=== PATIENT | male | born 1950 | race African-American/Black ===

== ENCOUNTER 2019-10-15 23:21 | Emergency (ER) | payer MEDICARE ==
[~2019-10-15] VITALS: Ht 177.8 cm; Wt 84.1 kg
[~2019-10-15 23:21] MED LIST: ACET500T15 PO; AMLO5TAB6 PO; DOXY-350 PO; METF500T13 PO; MIRA3350 PO; ONDA4TAB6 PO
[2019-10-15 23:22] VITALS: BP 178/97
== END 2019-10-16 02:32 | disposition left against medical advice (07) ==
LOC: M ED 23:21
DX: Z53.21 Procedure and treatment not carried out due to patient leaving prior to being seen by health care provider (principal)

== ENCOUNTER 2021-06-21 16:43 | Emergency (ER) | payer MEDICARE ==
[~2021-06-21] VITALS: Ht 177.8 cm; Wt 80.8 kg
[~2021-06-21 16:43] MED LIST changes: +AMLO1TAB24 PO; -AMLO5TAB6 PO
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
[2021-06-21 20:21] VITALS: BP 188/98
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
== END 2021-06-21 20:24 | disposition left against medical advice (07) ==
LOC: M ED 16:43
DX: Z53.29 Procedure and treatment not carried out because of patient's decision for other reasons (principal)

== ENCOUNTER 2021-08-25 13:08 | Emergency (ER) | payer MEDICARE, OTHER ==
[~2021-08-25] VITALS: Ht 177.8 cm; Wt 80.6 kg
--- NOTE | 2021-08-25 13:52 | REP ---
INDICATION: NEURO SYMPTOMS COMPARISON: None. TECHNIQUE: Axial noncontrast images from the skull base to the thoracic inlet with coronal reformations. This CT examination was performed using the following dose reduction techniques: Automated exposure control, adjustment of mA and/or kv according to the patient's size, and use of iterative reconstruction technique. FINDINGS: Atrophy with periventricular leukomalacia and microvascular ischemic changes are appreciated. The ventricles and sulci are symmetric. Yeager-white differentiation is maintained. There is no evidence for acute intracranial hemorrhage, mass/mass effect, pathology or infarction. No extra-axial fluid collection. Calvarium is intact. Paranasal sinuses and mastoid air cells are clear. IMPRESSION: Atrophy and microvascular ischemic changes. No acute intracranial hemorrhage, or mass/mass effect. <Electronically signed by Rajesh Howard > 08/25/21 [id number]
[2021-08-25] MEDS ORDERED: TETRACAINE 0.5% OPHTH SOLN 4ML OU ONE (14:15)
[2021-08-25 14:45] VITALS: BP 153/84
== END 2021-08-25 14:51 | disposition home or self-care (01) ==
LOC: M ED 13:08
DX: H40.9 Unspecified glaucoma (principal)

== ENCOUNTER 2022-04-18 17:40 | Emergency (ER) | payer MEDICARE ==
[~2022-04-18] VITALS: Ht 177.8 cm; Wt 71.9 kg
[2022-04-18] MEDS ORDERED: DORZ2SOL5 (17:55)
[2022-04-18] MEDS ORDERED: PILO1OPD (17:55)
[2022-04-18] MEDS ORDERED: BRIM0.2S13 (17:55)
[2022-04-18 19:45] LABS: BASO # 0.1 10^3/uL (0.0-0.2); BASO % 1.1 % (0.0-1.0); EOS # 0.1 10^3/uL (0.0-0.5); HEMATOCRIT 45.4 % (42.0-52.0); HEMOGLOBIN 15.6 g/dl (13.5-17.5); LYMPH # 1.1 10^3/uL (1.5-5.0); MEAN CORPUSCULAR HEMOGLOBIN 27.6 pg (27.0-33.0); MEAN CORPUSCULAR HGB CONC 34.4 g/dl (32.0-36.5); MEAN CORPUSCULAR VOLUME 80.4 fl (80.0-96.0); MONO # 0.4 10^3/uL (0.0-0.8); MONO % 6.2 % (2.0-8.0); NEUTROPHILS % 70.5 % (36.0-66.0); PLATELET COUNT, AUTOMATED 218 10^3/uL (150-450); RED BLOOD COUNT 5.65 10^6/uL (4.30-6.10); WHITE BLOOD COUNT 5.6 10^3/uL (4.0-10.0)
[2022-04-18 20:42] LABS: ALT/SGPT 21 U/L (12-78); BLOOD UREA NITROGEN 15 MG/DL (7-18); CALCIUM LEVEL 9.9 MG/DL (8.8-10.2); CARBON DIOXIDE LEVEL 26 MEQ/L (21-32); CHLORIDE LEVEL 104 MEQ/L (98-107); CREATININE FOR GFR 0.99 MG/DL (0.70-1.30); GLOMERULAR FILTRATION RATE > 60.0 (>49); GLUCOSE, FASTING 177 MG/DL (70-100); SODIUM LEVEL 135 MEQ/L (136-145)
[2022-04-18 20:43] LABS: ALBUMIN 4.3 GM/DL (3.2-5.2); BILIRUBIN,DIRECT 0.2 MG/DL (0.0-0.2); BILIRUBIN,TOTAL 0.7 MG/DL (0.2-1.0); LIPASE 116 U/L (73-393); TOTAL PROTEIN 8.2 GM/DL (6.4-8.2)
[2022-04-18] MEDS ORDERED: PERCOCET 5MG/325MG TAB PO ONE (22:40)
[2022-04-18 22:58] VITALS: BP 172/92
== END 2022-04-18 23:00 | disposition home or self-care (01) ==
LOC: M ED 17:40
DX: K40.20 Bilateral inguinal hernia, without obstruction or gangrene, not specified as recurrent (principal); I10 Essential (primary) hypertension; R73.9 Hyperglycemia, unspecified; H40.9 Unspecified glaucoma; Z79.899 Other long term (current) drug therapy

== ENCOUNTER 2024-04-13 16:31 | Inpatient (IN) | payer MEDICARE, MEDICAID ==
[~2024-04-13] VITALS: Ht 177.8 cm; Wt 76.9 kg
[~2024-04-13 16:31] MED LIST changes: +BRIM0.2S13 OU; +DORZ2SOL5 OU; -DOXY-350 PO; +DOXY-440 PO; +ONDA-282 PO; -ONDA4TAB6 PO; +PILO1OPD
[2024-04-13] MEDS ORDERED: LATANOPROST (16:44)
[2024-04-13 17:31] LABS: BASO # 0.1 10^3/uL (0.0-0.2); BASO % 0.4 % (0.0-1.0); EOS # 0.1 10^3/uL (0.0-0.5); HEMATOCRIT 39.7 % (42.0-52.0); HEMOGLOBIN 14.1 g/dl (13.5-17.5); LYMPH # 1.3 10^3/uL (1.5-5.0); LYMPH % 11.1 % (24.0-44.0); MEAN CORPUSCULAR HEMOGLOBIN 28.4 pg (27.0-33.0); MEAN CORPUSCULAR HGB CONC 35.5 g/dl (32.0-36.5); MEAN CORPUSCULAR VOLUME 79.9 fl (80.0-96.0); MONO # 1.1 10^3/uL (0.0-0.8); MONO % 9.4 % (2.0-8.0); NEUTROPHILS % 77.7 % (36.0-66.0); PLATELET COUNT, AUTOMATED 193 10^3/uL (150-450); RED BLOOD COUNT 4.97 10^6/uL (4.30-6.10); WHITE BLOOD COUNT 11.5 10^3/uL (4.0-10.0)
[2024-04-13 17:39] LABS: ERYTHROCYTE SEDIMENTATION RATE 55 mm/hr (0-20)
[2024-04-13 17:59] LABS: INR 1.17; PARTIAL THROMBOPLASTIN TIME 26.8 SECONDS (24.8-34.2); PROTHROMBIN TIME 14.5 SECONDS (12.5-14.5)
[2024-04-13 17:59] LABS: ALBUMIN 3.5 G/DL (3.2-5.2); ALKALINE PHOSPHATASE 102 U/L (46-116); ALT/SGPT 19 U/L (7.0-40); AST/SGOT 29 U/L (<34); BILIRUBIN,DIRECT 0.4 MG/DL (<0.4); BILIRUBIN,TOTAL 1.1 MG/DL (0.3-1.2); BLOOD UREA NITROGEN 21 MG/DL (9-23); CALCIUM LEVEL 9.3 MG/DL (8.3-10.6); CARBON DIOXIDE LEVEL 24 MMOL/L (20-31); CHLORIDE LEVEL 104 MMOL/L (98-107); GLOMERULAR FILTRATION RATE > 60.0 (>42); GLUCOSE, FASTING 299 MG/DL (74-106); POTASSIUM SERUM 4.1 MMOL/L (3.5-5.1); SODIUM LEVEL 135 MMOL/L (136-145); TOTAL PROTEIN 7.3 G/DL (5.7-8.2)
[2024-04-13] MEDS ORDERED: VANCOMYCIN HCL 1,500 MG in NS 250 ML IV ONE (18:05)
[2024-04-13] MEDS: ACETAMINOPHEN 500 MG TAB PO ONE (18:18)
[2024-04-13 18:21] LABS: PROCALCITONIN 1.38 ng/ml
[2024-04-13] MEDS: BOOSTRIX VACCINE (TETANUS/DIPHTH/ACEL. PERTUSSIS) 0.5ML SYR IM ONE (18:21)
[2024-04-13 18:23] LABS: HEMOGLOBIN A1c 9.7 % (4.0-6.0)
[2024-04-13] MEDS: VANCOMYCIN HCL 750 MG, VIAL MATE ADAPTER 1 EACH in D5W 250 ML IV ONE ×2 (18:54→20:47)
[2024-04-13] MEDS: NS 2,220 ML in IV 1 EA IV ONE (18:54)
[2024-04-13] MEDS ORDERED: DEXTROSE 50% 50ML SYRINGE IV PRN (21:35)
[2024-04-13] MEDS ORDERED: GLUCAGON INJ 1MG VIAL SC PRN (21:35)
[2024-04-13] MEDS ORDERED: GLUCOSE 4 GM CHEW PO PRN (21:35)
[2024-04-13] MEDS ORDERED: PROHANCE 279.3MG/ML 15ML VIAL As Ordered ONE (21:54)
[2024-04-14] MEDS ORDERED: XALA0.007 OU (00:16)
[2024-04-14] MEDS ORDERED: PILO1OPD OU (00:16)
[2024-04-14] MEDS ORDERED: HOME MED LIST COMPLETE! XX SCH (00:20)
[2024-04-14 00:27] LABS: CHOLESTEROL RISK RATIO 3.87 (<5); HDL CHOLESTEROL 48.3 MG/DL (>40); LDL CHOLESTEROL 117.1 MG/DL (<100); NON-HDL-C 138.7 MG/DL
[2024-04-14 00:30] LABS: THYROID STIMULATING HORMONE 1.711 uIU/ML (0.55-4.78)
[2024-04-14] MEDS: PIPERACILLIN/TAZOBACTAM SOD 4.5 GM in D5W MINI-BAG PLUS 50 ML IV ONE (00:35)
[2024-04-14] MEDS: NS 1,000 ML IV SCH (00:36)
[2024-04-14] MEDS: INSULIN LISPRO (NovoLOG) PER UNIT SC SCH (00:36)
[2024-04-14] MEDS: KETOROLAC 30 MG/ML 1ML VIAL IV ONE ×2 (00:37→23:36)
[2024-04-14 06:13] LABS: BASO # 0.1 10^3/uL (0.0-0.2); BASO % 0.7 % (0.0-1.0); EOS # 0.2 10^3/uL (0.0-0.5); EOS % 2.2 % (0.0-3.0); HEMATOCRIT 34.5 % (42.0-52.0); HEMOGLOBIN 12.5 g/dl (13.5-17.5); LYMPH # 1.9 10^3/uL (1.5-5.0); LYMPH % 17.7 % (24.0-44.0); MEAN CORPUSCULAR HEMOGLOBIN 28.6 pg (27.0-33.0); MEAN CORPUSCULAR HGB CONC 36.2 g/dl (32.0-36.5); MEAN CORPUSCULAR VOLUME 78.9 fl (80.0-96.0); MONO # 1.2 10^3/uL (0.0-0.8); MONO % 11.3 % (2.0-8.0); NEUTROPHILS # 7.2 10^3/uL (1.5-8.5); NEUTROPHILS % 67.6 % (36.0-66.0); PLATELET COUNT, AUTOMATED 186 10^3/uL (150-450); RED BLOOD COUNT 4.37 10^6/uL (4.30-6.10); WHITE BLOOD COUNT 10.7 10^3/uL (4.0-10.0)
[2024-04-14] MEDS: VANCOMYCIN HCL 1,000 MG, VIAL MATE ADAPTER 1 EACH in D5W 250 ML IV SCH (06:20)
[2024-04-14 06:41] LABS: BLOOD UREA NITROGEN 17 MG/DL (9-23); CALCIUM LEVEL 8.3 MG/DL (8.3-10.6); CARBON DIOXIDE LEVEL 24 MMOL/L (20-31); CHLORIDE LEVEL 111 MMOL/L (98-107); CREATININE FOR GFR 0.76 MG/DL (0.70-1.30); GLOMERULAR FILTRATION RATE > 60.0 (>42); GLUCOSE, FASTING 96 MG/DL (74-106); MAGNESIUM LEVEL 1.8 MG/DL (1.8-2.4); POTASSIUM SERUM 3.5 MMOL/L (3.5-5.1); SODIUM LEVEL 142 MMOL/L (136-145)
[2024-04-14] MEDS: PIPERACILLIN/TAZOBACTAM SOD 4.5 GM in D5W MINI-BAG PLUS 50 ML IV SCH (08:19)
[2024-04-14] MEDS: COSOPT OCUMETER PLUS 10ML (DORZOLAMIDE/TIMOLOL) OU SCH (09:00)
[2024-04-14] MEDS: PILOCARPINE 1% OU SCH (09:00)
[2024-04-14] MEDS: ACETAMINOPHEN TAB 650MG DOSE (2X325MG) PO PRN (09:18)
[2024-04-14 14:49] VITALS: BP 151/67; TEMP 96.9; O2SAT 99
[2024-04-14 16:08] VITALS: BP 147/88; TEMP 97.9; O2SAT 93
[2024-04-14] MEDS: PREVNAR-20 VACCINE 0.5ML SYRINGE IM.IMMUN ONE (16:30)
[2024-04-14] MEDS: MORPHINE 4 MG/ML 1ML VIAL IV ONE (17:11)
[2024-04-14] MEDS: LIDOCAINE 1% MDV 20ML VIAL SC ONE (17:14)
[2024-04-14 20:00] VITALS: BP 149/86; TEMP 97.2; O2SAT 96
[2024-04-14] MEDS: LATANOPROST 0.005% OPHTH SOLN 2.5 ML OU SCH (21:35)
[2024-04-15 04:00] VITALS: BP 147/83; TEMP 97.3; O2SAT 95
[2024-04-15] MEDS ORDERED: PROBCAP14 PO (07:14)
[2024-04-15] MEDS ORDERED: AUGM12TA11 PO (07:14)
[2024-04-15] MEDS ORDERED: DOXY100C3 PO (07:14)
[2024-04-15] MEDS: INSULIN LISPRO (NovoLOG) PER UNIT SC SCH (07:30)
[2024-04-15 07:37] LABS: HEMATOCRIT 34.3 % (42.0-52.0); HEMOGLOBIN 12.3 g/dl (13.5-17.5); MEAN CORPUSCULAR HEMOGLOBIN 28.1 pg (27.0-33.0); MEAN CORPUSCULAR HGB CONC 35.9 g/dl (32.0-36.5); MEAN CORPUSCULAR VOLUME 78.5 fl (80.0-96.0); PLATELET COUNT, AUTOMATED 180 10^3/uL (150-450); RED BLOOD COUNT 4.37 10^6/uL (4.30-6.10); WHITE BLOOD COUNT 8.3 10^3/uL (4.0-10.0)
[2024-04-15 07:44] LABS: BLOOD UREA NITROGEN 15 MG/DL (9-23); CALCIUM LEVEL 7.7 MG/DL (8.3-10.6); CARBON DIOXIDE LEVEL 23 MMOL/L (20-31); CHLORIDE LEVEL 110 MMOL/L (98-107); CREATININE FOR GFR 0.72 MG/DL (0.70-1.30); GLOMERULAR FILTRATION RATE > 60.0 (>42); GLUCOSE, FASTING 229 MG/DL (74-106); MAGNESIUM LEVEL 1.7 MG/DL (1.8-2.4); POTASSIUM SERUM 3.6 MMOL/L (3.5-5.1); SODIUM LEVEL 138 MMOL/L (136-145)
[2024-04-15 08:37] LABS: ATYPICAL LYMPH 5 % (0-5); EOSINOPHILS 6 % (0-3); LYMPHOCYTES 22 % (16-44); MICROCYTOSIS 1+; MONOCYTES 11 % (0-5); NEUTROPHILS 56 % (28-66); PLATELET ESTIMATE NORMAL (NORMAL)
[2024-04-15 08:38] LABS: ANISOCYTOSIS 1+; TOXIC VACUOLATION 1+
[2024-04-15] MEDS ORDERED: INSULIN LISPRO (NovoLOG) PER UNIT SC SCH (21:00)
== END 2024-04-15 08:00 | disposition left against medical advice (07) | DRG 638 ==
LOC: M ED 16:31 → M ED INP 21:34 → M MS5PR 04-14 16:00
PROVIDERS: ADMIT Internal Medicine; ATTEND Student in an Organized Health Care Education/Training Program
PROC: 0Y9N0ZZ Drainage of Left Foot, Open Approach (ICD-10-PCS; principal; 2024-04-14)
DX: E11.628 Type 2 diabetes mellitus with other skin complications (principal); M86.8X7 Other osteomyelitis, ankle and foot; L02.612 Cutaneous abscess of left foot; E11.69 Type 2 diabetes mellitus with other specified complication; I10 Essential (primary) hypertension; H40.9 Unspecified glaucoma; H26.9 Unspecified cataract; G31.84 Mild cognitive impairment of uncertain or unknown etiology; M60.872 Other myositis, left ankle and foot; E11.65 Type 2 diabetes mellitus with hyperglycemia; Z87.891 Personal history of nicotine dependence; Z79.899 Other long term (current) drug therapy

== ENCOUNTER 2024-09-20 12:09 | Emergency (ER) | payer MEDICARE, MEDICAID ==
[~2024-09-20] VITALS: Ht 172.7 cm; Wt 79.9 kg
[~2024-09-20 12:09] MED LIST changes: +AUGM12TA11 PO; +DOXY100C3 PO; +LATANOPROST; +PILO1OPD OU; +PROBCAP14 PO; +XALA0.007 OU
[2024-09-20 13:57] LABS: VENOUS BASE EXCESS 0.7 (-2.0-2.0); VENOUS HCO3 25.3 MMOL/L (23.0-27.0); VENOUS PARTIAL PRESSURE CO2 40.7 mmHg (38.0-50.0); VENOUS PH 7.412 UNITS (7.330-7.430); VENOUS STANDARD HCO3 24.6 MMOL/L; VENOUS TOTAL CO2 26.6 MMOL/L (24.0-28.0)
[2024-09-20 14:06] LABS: BASO % 0.5 % (0.0-1.0); EOS # 0.1 10^3/uL (0.0-0.5); EOS % 1.1 % (0.0-3.0); HEMATOCRIT 44.1 % (42.0-52.0); HEMOGLOBIN 15.9 g/dl (13.5-17.5); LYMPH # 1.6 10^3/uL (1.5-5.0); LYMPH % 20.3 % (24.0-44.0); MEAN CORPUSCULAR HEMOGLOBIN 28.4 pg (27.0-33.0); MEAN CORPUSCULAR HGB CONC 36.1 g/dl (32.0-36.5); MEAN CORPUSCULAR VOLUME 78.9 fl (80.0-96.0); MONO # 0.7 10^3/uL (0.0-0.8); MONO % 8.4 % (2.0-8.0); NEUTROPHILS # 5.6 10^3/uL (1.5-8.5); NEUTROPHILS % 69.3 % (36.0-66.0); PLATELET COUNT, AUTOMATED 216 10^3/uL (150-450); RED BLOOD COUNT 5.59 10^6/uL (4.30-6.10); WHITE BLOOD COUNT 8.1 10^3/uL (4.0-10.0)
[2024-09-20 14:27] LABS: ACETONE/KETONE 0.17 MMOL/L (0.02-0.27); ALBUMIN 3.9 G/DL (3.2-5.2); BILIRUBIN,DIRECT 0.2 MG/DL (<0.4); BILIRUBIN,TOTAL 0.7 MG/DL (0.3-1.2); TOTAL PROTEIN 8.3 G/DL (5.7-8.2)
[2024-09-20 14:32] LABS: KETONE, URINE AUTO RFX NEGATIVE (NEGATIVE); LEUKOCYTE ESTERASE UR AUTO RFX NEGATIVE (NEGATIVE); NITRITE, URINE AUTO RFX NEGATIVE (NEGATIVE); RBC, URINE AUTO RFX 0 /HPF (0-3); SQUAM EPITHELIAL CELL UR AURFX 0 /HPF (0-6); WBC, URINE AUTO RFX 1 /HPF (0-3)
[2024-09-20] MEDS: NS (Normal Saline) 0.9% 1,000 ML IV ONE (16:10)
[2024-09-20 16:24] LABS: HEMOGLOBIN A1c 11.2 % (4.0-6.0)
[2024-09-20] MEDS ORDERED: AMLO1TAB24 PO (20:35)
[2024-09-20] MEDS ORDERED: METF500T13 PO (20:35)
[2024-09-20 21:29] VITALS: BP 165/83; TEMP 97.3; O2SAT 97
[2024-09-23] MEDS ORDERED: METF500T13 PO (15:14)
[2024-09-23] MEDS ORDERED: AMLO1TAB24 PO (15:14)
== END 2024-09-20 21:34 | disposition home or self-care (01) ==
LOC: M ED 12:09 → EDBD 12:09 → M ED 21:34
DX: E11.9 Type 2 diabetes mellitus without complications (principal); I10 Essential (primary) hypertension; Z79.899 Other long term (current) drug therapy

== ENCOUNTER 2024-09-22 09:31 | Emergency (ER) | payer MEDICARE, MEDICAID ==
[~2024-09-22] VITALS: Ht 177.8 cm; Wt 72.7 kg
[2024-09-22 16:05] LABS: BASO % 0.5 % (0.0-1.0); EOS % 0.4 % (0.0-3.0); HEMATOCRIT 39.8 % (42.0-52.0); HEMOGLOBIN 14.1 g/dl (13.5-17.5); LYMPH # 1.7 10^3/uL (1.5-5.0); LYMPH % 22.5 % (24.0-44.0); MEAN CORPUSCULAR HGB CONC 35.4 g/dl (32.0-36.5); MONO # 0.7 10^3/uL (0.0-0.8); MONO % 9.8 % (2.0-8.0); NEUTROPHILS # 4.9 10^3/uL (1.5-8.5); NEUTROPHILS % 66.7 % (36.0-66.0); PLATELET COUNT, AUTOMATED 198 10^3/uL (150-450); RED BLOOD COUNT 5.04 10^6/uL (4.30-6.10); WHITE BLOOD COUNT 7.3 10^3/uL (4.0-10.0)
[2024-09-22 16:23] LABS: ETHYL ALCOHOL (ETHANOL) 0.005 % (0.000-0.010)
[2024-09-22 16:26] LABS: ALBUMIN 3.8 G/DL (3.2-5.2); ALKALINE PHOSPHATASE 80 U/L (40-129); ALT/SGPT 18 U/L (7.0-40); AST/SGOT 25 U/L (<34); BILIRUBIN,DIRECT 0.3 MG/DL (<0.4); BILIRUBIN,TOTAL 0.9 MG/DL (0.3-1.2); BLOOD UREA NITROGEN 31 MG/DL (9-23); CALCIUM LEVEL 9.6 MG/DL (8.3-10.6); CARBON DIOXIDE LEVEL 24 MMOL/L (20-31); CHLORIDE LEVEL 106 MMOL/L (98-107); CREATININE FOR GFR 0.95 MG/DL (0.70-1.30); GLOMERULAR FILTRATION RATE > 60.0 (>42); GLUCOSE, FASTING 210 MG/DL (74-106); POTASSIUM SERUM 4.7 MMOL/L (3.5-5.1); SODIUM LEVEL 142 MMOL/L (136-145); TOTAL PROTEIN 7.3 G/DL (5.7-8.2)
[2024-09-22 17:39] LABS: KETONE, URINE AUTO RFX 1+ mg/dL (NEGATIVE); LEUKOCYTE ESTERASE UR AUTO RFX NEGATIVE (NEGATIVE); MUCUS, URINE RFX SMALL (NEGATIVE); NITRITE, URINE AUTO RFX NEGATIVE (NEGATIVE); RBC, URINE AUTO RFX 1 /HPF (0-3); SQUAM EPITHELIAL CELL UR AURFX 0 /HPF (0-6); WBC, URINE AUTO RFX 1 /HPF (0-3)
[2024-09-22 18:03] LABS: AMPHETAMINES LEVEL URINE NEGATIVE (NEGATIVE); BARBITURATES URINE NEGATIVE (NEGATIVE); BENZODIAZEPINES URINE NEGATIVE (NEGATIVE); COCAINE METABOLITE URINE NEGATIVE (NEGATIVE); METHADONE URINE NEGATIVE (NEGATIVE); OPIATES URINE NEGATIVE (NEGATIVE); PHENCYCLIDINE URINE NEGATIVE (NEGATIVE)
[2024-09-22 18:04] LABS: CANNABINOIDS URINE NEGATIVE (NEGATIVE)
[2024-09-22] MEDS ORDERED: ACET-683 PO (19:40)
[2024-09-22] MEDS ORDERED: IBUP-1022 PO (19:40)
[2024-09-22] MEDS ORDERED: LIDO5DIS41 TD (19:40)
[2024-09-22] MEDS ORDERED: CYCL5TAB4 PO (19:40)
[2024-09-22 19:48] VITALS: BP 157/77; TEMP 98.2; O2SAT 99
[2024-09-23] MEDS ORDERED: METF500T13 PO (15:14)
[2024-09-23] MEDS ORDERED: AMLO1TAB24 PO (15:14)
== END 2024-09-22 19:56 | disposition home or self-care (01) ==
LOC: M ED 09:31
DX: E11.40 Type 2 diabetes mellitus with diabetic neuropathy, unspecified (principal); M47.892 Other spondylosis, cervical region; I10 Essential (primary) hypertension; Z87.891 Personal history of nicotine dependence; Z79.899 Other long term (current) drug therapy

== ENCOUNTER 2024-09-24 17:36 | Emergency (ER) | payer MEDICARE, MEDICAID ==
[~2024-09-24] VITALS: Ht 177.8 cm; Wt 78.3 kg
[~2024-09-24 17:36] MED LIST changes: +ACET-683 PO; +CYCL5TAB4 PO; +IBUP-1022 PO; +LIDO5DIS41 TD
[2024-09-24 20:28] LABS: BASO # 0.1 10^3/uL (0.0-0.2); BASO % 0.8 % (0.0-1.0); EOS % 0.3 % (0.0-3.0); HEMATOCRIT 39.8 % (42.0-52.0); HEMOGLOBIN 14.3 g/dl (13.5-17.5); LYMPH # 1.2 10^3/uL (1.5-5.0); LYMPH % 19.5 % (24.0-44.0); MEAN CORPUSCULAR HGB CONC 35.9 g/dl (32.0-36.5); MONO # 0.5 10^3/uL (0.0-0.8); MONO % 8.9 % (2.0-8.0); NEUTROPHILS # 4.2 10^3/uL (1.5-8.5); NEUTROPHILS % 70.2 % (36.0-66.0); PLATELET COUNT, AUTOMATED 217 10^3/uL (150-450); WHITE BLOOD COUNT 6.1 10^3/uL (4.0-10.0)
[2024-09-24] MEDS: ACETAMINOPHEN 325 MG TAB PO ONE (20:36)
[2024-09-24 20:58] LABS: CK-MB VALUE MASS 8.5 NG/ML (<3.6)
[2024-09-24 20:59] LABS: CPK CREATINE PHOSPHOKINASE 564 U/L (46-171)
[2024-09-24 21:00] LABS: BLOOD UREA NITROGEN 34 MG/DL (9-23); CALCIUM LEVEL 9.2 MG/DL (8.3-10.6); CARBON DIOXIDE LEVEL 23 MMOL/L (20-31); CHLORIDE LEVEL 107 MMOL/L (98-107); CREATININE FOR GFR 0.85 MG/DL (0.70-1.30); GLOMERULAR FILTRATION RATE > 60.0 (>42); GLUCOSE, FASTING 280 MG/DL (74-106); POTASSIUM SERUM 4.6 MMOL/L (3.5-5.1); SODIUM LEVEL 139 MMOL/L (136-145)
[2024-09-24 22:00] VITALS: BP 141/83; TEMP 97.8; O2SAT 97
[2024-09-24 22:13] LABS: CK-MB VALUE MASS 7.8 NG/ML (<3.6)
[2024-09-24 22:16] LABS: MB/CK RELATIVE INDEX 1.46 (< OR =4)
== END 2024-09-25 | disposition home or self-care (01) ==
LOC: M ED 17:36
DX: M54.2 Cervicalgia (principal); Z59.00 Homelessness unspecified; M25.551 Pain in right hip; E11.9 Type 2 diabetes mellitus without complications; I10 Essential (primary) hypertension; H40.9 Unspecified glaucoma; Z79.899 Other long term (current) drug therapy

== ENCOUNTER 2024-09-26 23:20 | Emergency (ER) | payer MEDICARE, MEDICAID ==
[~2024-09-26] VITALS: Ht 177.8 cm; Wt 78.3 kg
[2024-09-27 01:35] LABS: BASO # 0.1 10^3/uL (0.0-0.2); BASO % 0.9 % (0.0-1.0); EOS # 0.1 10^3/uL (0.0-0.5); EOS % 0.9 % (0.0-3.0); HEMATOCRIT 37.6 % (42.0-52.0); HEMOGLOBIN 13.7 g/dl (13.5-17.5); LYMPH # 1.2 10^3/uL (1.5-5.0); LYMPH % 20.2 % (24.0-44.0); MEAN CORPUSCULAR HEMOGLOBIN 28.4 pg (27.0-33.0); MEAN CORPUSCULAR HGB CONC 36.4 g/dl (32.0-36.5); MONO # 0.7 10^3/uL (0.0-0.8); MONO % 11.7 % (2.0-8.0); NEUTROPHILS # 3.8 10^3/uL (1.5-8.5); NEUTROPHILS % 66.1 % (36.0-66.0); PLATELET COUNT, AUTOMATED 206 10^3/uL (150-450); RED BLOOD COUNT 4.82 10^6/uL (4.30-6.10); WHITE BLOOD COUNT 5.7 10^3/uL (4.0-10.0)
[2024-09-27] MEDS: metFORMIN (GLUCOPHAGE) 500MG TAB PO ONE (01:47)
[2024-09-27] MEDS: ACETAMINOPHEN 325 MG TAB PO ONE (01:47)
[2024-09-27] MEDS: MAGNESIUM CITRATE 300ML BTL PO ONE (01:47)
[2024-09-27 01:50] LABS: BLOOD UREA NITROGEN 20 MG/DL (9-23); CALCIUM LEVEL 9.2 MG/DL (8.3-10.6); CARBON DIOXIDE LEVEL 24 MMOL/L (20-31); CHLORIDE LEVEL 104 MMOL/L (98-107); CREATININE FOR GFR 0.87 MG/DL (0.70-1.30); GLOMERULAR FILTRATION RATE > 60.0 (>42); GLUCOSE, FASTING 287 MG/DL (74-106); POTASSIUM SERUM 4.5 MMOL/L (3.5-5.1); SODIUM LEVEL 139 MMOL/L (136-145)
[2024-09-27 02:13] LABS: APPEARANCE, URINE HAZY (CLEAR); BACTERIA, URINE AUTO NEGATIVE (NEGATIVE); BILIRUBIN, URINE AUTO NEGATIVE (NEGATIVE); BLOOD, URINE BLOOD NEGATIVE (NEGATIVE); COLOR, URINE YELLOW (YELLOW); GLUCOSE, URINE (UA) AUTO 3+ mg/dL (NEGATIVE); KETONE, URINE AUTO NEGATIVE (NEGATIVE); LEUKOCYTE ESTERASE, URINE AUTO NEGATIVE (NEGATIVE); MUCUS, URINE SMALL (NEGATIVE); NITRITE, URINE AUTO NEGATIVE (NEGATIVE); PROTEIN, URINE AUTO 1+ mg/dL (NEGATIVE); RBC, URINE AUTO 1 /HPF (0-3); SPECIFIC GRAVITY URINE AUTO 1.033 (1.002-1.035); SQUAMOUS EPITHELIAL CELL UR AU 0 /HPF (0-6); WBC, URINE AUTO 1 /HPF (0-3)
[2024-09-27 10:45] VITALS: BP 143/90; TEMP 98; O2SAT 97
== END 2024-09-27 10:49 | disposition home or self-care (01) ==
LOC: M ED 23:20 → EDBD 23:20 → M ED 09-27 10:49
DX: E11.65 Type 2 diabetes mellitus with hyperglycemia (principal); I10 Essential (primary) hypertension; Z79.899 Other long term (current) drug therapy

== ENCOUNTER 2024-09-30 23:41 | Emergency (ER) | payer MEDICARE, MEDICAID ==
[~2024-09-30] VITALS: Ht 177.8 cm; Wt 73.5 kg
[2024-10-01 05:33] VITALS: BP 132/86; TEMP 98.2; O2SAT 99
== END 2024-10-01 05:35 | disposition home or self-care (01) ==
LOC: M ED 23:41
DX: F45.0 Somatization disorder (principal); E11.9 Type 2 diabetes mellitus without complications; F17.200 Nicotine dependence, unspecified, uncomplicated; Z79.899 Other long term (current) drug therapy

== ENCOUNTER 2024-10-03 16:19 | Emergency (ER) | payer MEDICARE, MEDICAID ==
[2024-10-03 20:00] VITALS: BP 152/91; TEMP 96.9; O2SAT 96
== END 2024-10-03 20:00 | disposition home or self-care (01) ==
LOC: M ED 16:19 → EDBD 16:19 → M ED 20:00
DX: E11.9 Type 2 diabetes mellitus without complications (principal); I10 Essential (primary) hypertension; Z59.819 Housing instability, housed unspecified; Z79.899 Other long term (current) drug therapy

== ENCOUNTER 2024-10-06 14:38 | Emergency (ER) | payer MEDICARE, MEDICAID ==
[~2024-10-06] VITALS: Ht 177.8 cm; Wt 77.2 kg
[2024-10-06] MEDS: ACETAMINOPHEN 500 MG TAB PO ONE (17:28)
[2024-10-06] MEDS ORDERED: IBUP-1022 PO (17:32)
[2024-10-06] MEDS ORDERED: ACET-683 PO (17:32)
[2024-10-06 19:43] VITALS: BP 126/68; TEMP 97.1; O2SAT 97
== END 2024-10-06 19:53 | disposition home or self-care (01) ==
LOC: M ED 14:38
DX: M25.50 Pain in unspecified joint (principal); M19.90 Unspecified osteoarthritis, unspecified site; E11.9 Type 2 diabetes mellitus without complications; I10 Essential (primary) hypertension; H40.9 Unspecified glaucoma; Z79.899 Other long term (current) drug therapy

== ENCOUNTER 2024-10-06 22:51 | Emergency (ER) | payer MEDICARE, MEDICAID ==
[2024-10-07 09:45] VITALS: BP 144/89; O2SAT 100
[2024-10-07 11:04] VITALS: TEMP 97.7
== END 2024-10-07 11:21 | disposition home or self-care (01) ==
LOC: EDBD 22:51 → M ED 22:51
DX: Z76.5 Malingerer [conscious simulation] (principal); E11.9 Type 2 diabetes mellitus without complications; Z91.199 Patient's noncompliance with other medical treatment and regimen due to unspecified reason; M25.50 Pain in unspecified joint; M19.90 Unspecified osteoarthritis, unspecified site; I10 Essential (primary) hypertension; H40.9 Unspecified glaucoma; Z79.899 Other long term (current) drug therapy

== ENCOUNTER 2024-10-08 20:26 | Emergency (ER) | payer MEDICARE, MEDICAID ==
[~2024-10-08] VITALS: Ht 172.7 cm; Wt 75.0 kg
[2024-10-09 07:03] VITALS: BP 127/74; TEMP 98; O2SAT 95
== END 2024-10-09 07:00 | disposition home or self-care (01) ==
LOC: M ED 20:26
DX: Z76.5 Malingerer [conscious simulation] (principal); E11.9 Type 2 diabetes mellitus without complications; I10 Essential (primary) hypertension; H40.9 Unspecified glaucoma; Z79.899 Other long term (current) drug therapy

== ENCOUNTER 2024-10-11 16:41 | Emergency (ER) | payer MEDICARE, MEDICAID ==
[~2024-10-11] VITALS: Ht 177.8 cm; Wt 72.7 kg
[2024-10-12 08:39] LABS: BASO % 0.8 % (0.0-1.0); BLOOD UREA NITROGEN 25 MG/DL (9-23); CALCIUM LEVEL 8.6 MG/DL (8.3-10.6); CARBON DIOXIDE LEVEL 23 MMOL/L (20-31); CHLORIDE LEVEL 105 MMOL/L (98-107); CREATININE FOR GFR 0.96 MG/DL (0.70-1.30); EOS # 0.1 10^3/uL (0.0-0.5); EOS % 2.2 % (0.0-3.0); GLOMERULAR FILTRATION RATE > 60.0 (>42); GLUCOSE, FASTING 217 MG/DL (74-106); HEMATOCRIT 38.2 % (42.0-52.0); HEMOGLOBIN 13.4 g/dl (13.5-17.5); LYMPH # 1.3 10^3/uL (1.5-5.0); LYMPH % 26.7 % (24.0-44.0); MEAN CORPUSCULAR HEMOGLOBIN 27.6 pg (27.0-33.0); MEAN CORPUSCULAR HGB CONC 35.1 g/dl (32.0-36.5); MEAN CORPUSCULAR VOLUME 78.6 fl (80.0-96.0); MONO # 0.6 10^3/uL (0.0-0.8); MONO % 11.3 % (2.0-8.0); NEUTROPHILS # 2.9 10^3/uL (1.5-8.5); NEUTROPHILS % 58.8 % (36.0-66.0); PLATELET COUNT, AUTOMATED 265 10^3/uL (150-450); POTASSIUM SERUM 3.8 MMOL/L (3.5-5.1); RED BLOOD COUNT 4.86 10^6/uL (4.30-6.10); SODIUM LEVEL 139 MMOL/L (136-145)
[2024-10-12] MEDS: NS (Normal Saline) 0.9% 1,000 ML IV ONE (08:42)
[2024-10-12 08:53] LABS: VENOUS BASE EXCESS 0.5 (-2.0-2.0); VENOUS HCO3 24.5 MMOL/L (23.0-27.0); VENOUS O2 SATURATION 80.8 % (60.0-80.0); VENOUS PARTIAL PRESSURE CO2 37.4 mmHg (38.0-50.0); VENOUS PARTIAL PRESSURE O2 44.9 mmHg (30.0-50.0); VENOUS PH 7.434 UNITS (7.330-7.430); VENOUS STANDARD HCO3 24.5 MMOL/L; VENOUS TOTAL CO2 25.6 MMOL/L (24.0-28.0)
[2024-10-12 09:56] VITALS: BP 125/79; TEMP 97.9; O2SAT 98
== END 2024-10-12 10:05 | disposition home or self-care (01) ==
LOC: M ED 10-12 07:20
DX: E11.65 Type 2 diabetes mellitus with hyperglycemia (principal); Z76.5 Malingerer [conscious simulation]; I10 Essential (primary) hypertension; Z59.00 Homelessness unspecified; Z87.891 Personal history of nicotine dependence; Z91.199 Patient's noncompliance with other medical treatment and regimen due to unspecified reason; Z79.899 Other long term (current) drug therapy

== ENCOUNTER 2024-10-12 23:07 | Emergency (ER) | payer MEDICARE, MEDICAID ==
[~2024-10-12] VITALS: Ht 167.6 cm; Wt 72.7 kg
[2024-10-12 23:18] VITALS: BP 128/86; TEMP 97.9; O2SAT 97
== END 2024-10-13 00:03 | disposition home or self-care (01) ==
LOC: M ED 23:07 → EDBD 23:07 → M ED 10-13 00:03
DX: Z59.9 Problem related to housing and economic circumstances, unspecified (principal); E11.9 Type 2 diabetes mellitus without complications; I10 Essential (primary) hypertension; Z91.199 Patient's noncompliance with other medical treatment and regimen due to unspecified reason; Z79.899 Other long term (current) drug therapy

== ENCOUNTER 2024-10-13 01:47 | Emergency (ER) | payer MEDICARE, MEDICAID ==
[~2024-10-13] VITALS: Ht 167.6 cm; Wt 72.4 kg
[2024-10-13 08:16] VITALS: BP 147/81; TEMP 98; O2SAT 100
== END 2024-10-13 08:19 | disposition home or self-care (01) ==
LOC: M ED 01:47
DX: Z59.9 Problem related to housing and economic circumstances, unspecified (principal); Z76.5 Malingerer [conscious simulation]; G89.29 Other chronic pain; Z79.899 Other long term (current) drug therapy

== ENCOUNTER 2024-10-13 18:10 | Emergency (ER) | payer MEDICARE, MEDICAID ==
[~2024-10-13] VITALS: Ht 177.8 cm; Wt 74.3 kg
[2024-10-13 18:21] VITALS: BP 149/67; TEMP 97.9; O2SAT 96
== END 2024-10-13 20:18 | disposition home or self-care (01) ==
LOC: M ED 18:10
DX: F45.0 Somatization disorder (principal); Z76.5 Malingerer [conscious simulation]; E11.9 Type 2 diabetes mellitus without complications; I10 Essential (primary) hypertension; Z79.899 Other long term (current) drug therapy

== ENCOUNTER 2024-10-17 20:33 | Emergency (ER) | payer MEDICARE, MEDICAID ==
[~2024-10-17] VITALS: Ht 177.8 cm; Wt 74.3 kg
[2024-10-17 20:52] VITALS: BP 118/79; TEMP 97.8; O2SAT 98
== END 2024-10-18 01:13 | disposition left against medical advice (07) ==
LOC: EDBD 20:33 → M ED 20:33
DX: R68.2 Dry mouth, unspecified (principal); G89.29 Other chronic pain; Z53.9 Procedure and treatment not carried out, unspecified reason

== ENCOUNTER 2024-10-21 21:28 | Emergency (ER) | payer MEDICAID, MEDICARE ==
[~2024-10-21] VITALS: Ht 177.8 cm; Wt 74.3 kg
[2024-10-21 21:32] VITALS: BP 128/84; TEMP 97.5; O2SAT 100
== END 2024-10-22 03:59 | disposition left against medical advice (07) ==
LOC: M ED 21:28 → EDBD 21:28 → M ED 10-22 03:59
DX: Z53.21 Procedure and treatment not carried out due to patient leaving prior to being seen by health care provider (principal)

== ENCOUNTER 2024-10-22 04:13 | Emergency (ER) | payer MEDICARE, MEDICAID ==
[2024-10-22] MEDS: ACETAMINOPHEN 325 MG TAB PO ONE (07:48)
[2024-10-22 07:54] VITALS: BP 124/78; TEMP 97.9; O2SAT 96
== END 2024-10-22 08:15 | disposition home or self-care (01) ==
LOC: M ED 04:13
DX: M79.642 Pain in left hand (principal); M79.641 Pain in right hand; E11.9 Type 2 diabetes mellitus without complications; I10 Essential (primary) hypertension; M19.90 Unspecified osteoarthritis, unspecified site; H40.9 Unspecified glaucoma; Z79.899 Other long term (current) drug therapy

== ENCOUNTER 2024-10-22 09:51 | Emergency (ER) | payer MEDICARE, MEDICAID ==
[~2024-10-22] VITALS: Ht 177.8 cm; Wt 69.2 kg
[2024-10-22 13:00] VITALS: BP 123/77; TEMP 97.8; O2SAT 99
== END 2024-10-22 15:58 | disposition left against medical advice (07) ==
LOC: M ED 09:51
DX: Z53.21 Procedure and treatment not carried out due to patient leaving prior to being seen by health care provider (principal)